=== PATIENT | male | born 1945 | race Caucasian/White ===

== ENCOUNTER 2021-03-05 18:19 | Inpatient (IN) | payer MEDICARE, OTHER, SELFPAY ==
[2021-03-05 18:34] VITALS: BP 147/99; PULSE 96; RESP 16; TEMP 36.9; O2SAT 94
[2021-03-05 18:40] VITALS: BP 155/106; PULSE 75; RESP 17; O2SAT 94
--- NOTE | 2021-03-05 18:42 | W.ED.CHESTPA ---
HPI - Chest Pain General: Chief Complaint: Chest Pain Stated Complaint: Chest Pain Time Seen by Provider: 03/05/21 18:31 History of Present Illness: MD complaint: chest pain Pertinent past history: coronary artery disease Onset (ago): day(s) (7) Timing of current episode: episodic Prior episodes: Yes Onset: during exertion Pain location: substernal Pain radiation: right arm and left arm Severity: moderate Quality: tightness and aching Relieving factors: nitroglycerin Exacerbating factors: exertion Associated symptoms: Reports dyspnea (mild); Deny fever(s), leg edema, nausea, palpitations or vomiting Treatment prior to arrival: nitroglycerin Review of Systems Const: Denies: fever(s) Eyes: Denies: change in vision Card: Reports: chest pain; Denies: palpitations Resp: Reports: dyspnea (mild) GI: Denies: nausea or vomiting PFSH ED PFSH: Medical History Cardiomyopathy Coronary artery disease Former smoker, stopped smoking many years ago GERD (gastroesophageal reflux disease) History of hypertension Hx of hyperlipidemia Hx of myocardial infarction Hypertension Surgical History Hx of CABG Social History Second hand smoke exposure: No Alcohol intake: never Caregiver/support person: Yes Lives independently: Yes Household members: spouse Marital status: Current occupational status: retired History of recent travel: No Current gender identity: Male Special christie needs: Yes Agree to transfusion: No Physical Exam Const: COMMON NORMALS: no acute distress, patient oriented x3 and alert GENERAL APPEARANCE: cooperative HENMT: COMMON NORMALS: normocephalic HEAD & SCALP: normocephalic Chest: COMMONS NORMALS: normal inspection of the chest Resp: COMMON NORMALS: normal respiratory effort, No use of accessory muscles and clear to auscultation bilaterally AUSCULTATION: clear to auscultation bilaterally Cardio: COMMON NORMALS: regular rate and regular rhythm RATE: regular rate RHYTHM: regular rhythm GI: COMMON NORMALS: Normal to inspection, nondistended, normoactive bowel sounds present and Soft to palpation PALPATION: Yes Soft to palpation Neuro: COMMON NORMALS: patient oriented x3 SENSORIUM/ORIENTATION: Yes alert Course Consultations: Consultation #1: Samy Time: 18:36 Vital Signs: Vital signs: Vital Signs Temperature 98.5 F 03/05/21 18:34 Pulse Rate 75 03/05/21 20:43 Respiratory Rate 17 03/05/21 20:43 Blood Pressure 155/106 03/05/21 20:43 Pulse Oximetry 94 03/05/21 20:43 MDM - Chest Pain MDM Narrative: Medical decision making narrative: 75-year-old gentleman with a history of coronary disease. He had a CABG in 1999. No real intervention since that time. He presents with episodic chest pain on and off for the last week. He was seen at his cardiology clinic locally on Monday and a stress test was scheduled. Pain was persistent today while fishing, and did not light up after nitroglycerin x3 at this point. Initially, his EKG shows a large left bundle branch block which appears new since his last EKG on record. There is ST elevation that is significant using scar posterior criteria in the inferior leads cardiology was alerted, and STEMI alert was called. The patient is being prepped for the [employer] now, and remains in stable condition. Lab Data: Labs: Lab Results 03/05/21 03/05/21 03/05/21 18:34 18:34 18:34 WBC 6.4 10^3/uL 10^3/ uL (4.0-10.0) RBC 4.83 10^6/uL 10^6 /uL (4.1-5.3) Hgb 14.6 g/dL g/dL (11.7-16.6) Hct 44.0 % % (42.0-52.0) MCV 91.1 fl fl (80-94) MCH 30.2 pg pg (28.0-34.0) MCHC 33.2 g/dL g/dL (30.0-36.0) RDW 12.5 % % (12.1-15.1) Plt Count 191 10^3/cmm 10^3 /cmm (130-400) MPV 10.6 fL H fL (7.4-10.4) Neut % (Auto) 61.7 % % Lymph % (Auto) 26.1 % % [place] % (Auto) 7.6 % % Eos % (Auto) 3.6 % % Baso % (Auto) 0.8 % % Neut # (Auto) 3.96 10^3/uL 10^3 /uL (1.8-7.7) Lymph # (Auto) 1.7 10^3/uL 10^3/ uL (0.8-4.8) [place] # (Auto) 0.5 10^3/uL 10^3/ uL (0.2-0.9) Eos # (Auto) 0.2 10^3/uL 10^3/ uL (0.0-0.8) Baso # (Auto) 0.1 10^3/uL 10^3/ uL (0.0-0.1) Nucleated RBC % (a uto) 0 % % Nucleated RBCs # 0.0 /100WBC /100W BC PT 13.90 SECONDS SEC ONDS (12.1-14.9) INR 1.04 (0.8-1.2) APTT 31.2 SECONDS SECO NDS (23.9-36.7) Sodium 142 mmol/L mmol/L (136-145) Potassium 4.1 mmol/L mmol/L (3.5-5.1) Chloride 105 mmol/L mmol/L (98-107) Carbon Dioxide 24 mmol/L mmol/L (22-29) Anion Gap 17.1 (5-19) BUN 15 mg/dL mg/dL (8-23) Creatinine 1.2 mg/dL mg/dL (0.7-1.2) GFR Calculation Not Reportable Glucose 91 mg/dL mg/dL (65-115) Calculated Osmolal ity 294 mOsm/kg mOsm/ kg (285-295) Calcium 9.3 mg/dL mg/dL (8.5-10.5) Total Bilirubin 0.4 mg/dL mg/dL (0.15-1.2) AST 22 U/L U/L (0-40) ALT 34 U/L U/L (0-41) Alkaline Phosphata se 79 IU/L IU/L (40-130) Creatine Kinase 119 U/L U/L (39-308) Troponin T Baselin e NT-Pro-B Natriuret Pep 208 pg/mL pg/mL (0-450) Total Protein 6.8 g/dL g/dL (6.6-8.7) Albumin 4.8 g/dL g/dL (3.5-5.2) Globulin 2.0 g/dL g/dL (1.3-4.6) 03/05/21 18:34 WBC RBC Hgb Hct MCV MCH MCHC RDW Plt Count MPV Neut % (Auto) Lymph % (Auto) [place] % (Auto) Eos % (Auto) Baso % (Auto) Neut # (Auto) Lymph # (Auto) [place] # (Auto) Eos # (Auto) Baso # (Auto) Nucleated RBC % (a uto) Nucleated RBCs # PT INR APTT Sodium Potassium Chloride Carbon Dioxide Anion Gap BUN Creatinine GFR Calculation Glucose Calculated Osmolal ity Calcium Total Bilirubin AST ALT Alkaline Phosphata se Creatine Kinase Troponin T Baselin e 40 ng/L H ng/L (0-15) NT-Pro-B Natriuret Pep Total Protein Albumin Globulin Discharge Plan Discharge Patient Disposition: Admitted As Inpatient Admit Provider: Shin Pablo Clinical Impression: ST elevation myocardial infarction (STEMI) Qualifiers: Involved coronary artery: right coronary artery Qualified Code(s): I21.11 - ST elevation (STEMI) myocardial infarction involving right coronary artery Condition: Serious Coding Level of Care Code ED Wallpaperer Helper for [facility] Fwd Exam Detailed
[2021-03-05 18:43] VITALS: PULSE 58
--- NOTE | 2021-03-05 18:43 | XRR_ITS ---
PROCEDURE INFORMATION: Exam: XR Chest Exam date and time: 03/05/2021 6:43 PM Age: 75 years old Clinical indication: Radiating and sternal or substernal pain; Prior surgery; Surgery date: 6+ months; Surgery type: Cabg 1999; Patient HX: Episodic chest pain x last few weeks. Persistent today. ; Additional info: Cp TECHNIQUE: Imaging protocol: XR of the chest. Views: 1 view. COMPARISON: [facility] Chest 2 views 11/02/2016 9:05 AM FINDINGS: Lungs: Unremarkable. No consolidation. Pleural spaces: Unremarkable. No pleural effusion. No pneumothorax. Heart/Mediastinum: The heart is not enlarged. There is a hiatal hernia which is unchanged. The patient has undergone coronary bypass surgery. Bones/joints: Unremarkable. XR/XR chest 1V portable [id number] IMPRESSION: 1. Stable hiatal hernia. 2. No acute cardiopulmonary abnormality. Radiation Dose CTDIVOL = (mGy): DLP = (mGy-cm)
--- NOTE | 2021-03-05 18:43 | ECG_ITS ---
[facility] Test Date: 2021-03-05 Pat Name: Sukhwinder Berg Department: Room: [facility]08 Gender: Male Supervisor Inventory Merchandising: : 1945 Requested By: Greg Gorman Order Number: [id number] Amanuel MD: Shin Pablo M.D. Measurements Intervals [place] Rate: 67 P: 25 UT: 151 QRS: -44 QRSD: 168 T: -16 QT: 411 QTc: 436 Interpretive Statements SINUS RHYTHM WITH SINUS ARRHYTHMIA POSSIBLE LEFT ATRIAL ENLARGEMENT [-0.1mV P-WAVE IN V1/V2] LEFT AXIS DEVIATION [QRS AXIS < -30] RIGHT BUNDLE BRANCH BLOCK [120+ ms QRS DURATION, UPRIGHT V1, 40+ ms S IN I/aVL/V4/V5/V6] Inferior leads ST elevation UT, probably recent. Acute UT ST DEPRESSION, CONSIDER SUBENDOCARDIAL INJURY [0.1+ mV ST DEPRESSION] Compared to ECG 02/14/2016 10:01:32 Left-axis deviation now present Sinus bradycardia no longer present Left anterior fascicular block no longer present Left ventricular hypertrophy no longer present Electronically Signed On 03-07-2021 13:19:57 LITHOGRAPH DESIGNER by Shin Pablo M.D. [email or web address] Therapeuticss[facility].Nutonian/store/NU/[id number] f
[2021-03-05] MEDS: ondansetron 2 mg/ML SDV 2 mL 4 MG IVP (18:49)
[2021-03-05] MEDS: ticagrelor 90 mg Tablet 180 MG PO (18:49)
[2021-03-05] MEDS: sodium chloride 0.9% 500 ML 999 ML IV (18:50)
[2021-03-05] MEDS: heparin 5,000 unit/mL INJ 1 mL 4000 UNIT IVP (18:51)
[2021-03-05] MEDS: aspirin 325 mg Tablet PO (18:51)
[2021-03-05 18:53] LABS: Basophils # 0.1 10^3/uL (0.0-0.1); Basophils % 0.8 %; Eosinophils # 0.2 10^3/uL (0.0-0.8); Eosinophils % 3.6 %; Hemoglobin 14.6 g/dL (11.7-16.6); Lymphocytes # 1.7 10^3/uL (0.8-4.8); Lymphocytes % 26.1 %; Mean Corpuscular HGB Conc 33.2 g/dL (30.0-36.0); Mean Corpuscular Hemoglobin 30.2 pg (28.0-34.0); Mean Corpuscular Volume 91.1 fl (80-94); Mean Platelet Volume 10.6 fL (7.4-10.4); Monocytes # 0.5 10^3/uL (0.2-0.9); Monocytes % 7.6 %; Neutrophils # 3.96 10^3/uL (1.8-7.7); Neutrophils % 61.7 %; Nucleated Red Blood Cells % 0 %; Platelet Count 191 10^3/cmm (130-400); Red Blood Count 4.83 10^6/uL (4.1-5.3); Red Cell Distribution Width 12.5 % (12.1-15.1); White Blood Count 6.4 10^3/uL (4.0-10.0)
[2021-03-05 19:02] LABS: INR 1.04 (0.8-1.2)
[2021-03-05 19:07] LABS: Partial Thromboplastin Time 31.2 SECONDS (23.9-36.7)
--- NOTE | 2021-03-05 19:07 | XACV_ITS ---
Wt: 92 kg Gender: Male : 1945 Any Known Allergies: No known allergies Exam Priority: Routine Procedure(s): Procedure Description: Diagnostic procedure Procedure Description: PCI procedure Procedure Description: Venous Graft Catheterization Procedure Description: KABA Graft Catheterization Procedure Description: Drug Eluting Coronary Stent Procedure Description: PTCA Procedure Description: Miscellaneous Procedure Description: ACT Procedure Description: Coronary Angiography Diagnostic Cath Status: Emergency Diagnostic Findings * Left main artery has * mild to moderate luminal irregularities LAD is proximally occluded. There is a medium to large sized diagonal artery which is patent Left circumflex artery has diffuse disease RCA not injected, known occluded KABA to LAD: Patent. Could not be selectively engaged because of subclavian tortuosity SVG to PDA: Has severe subtotal thrombotic occlusion right for touchdown with PDA.. * INDICATION: Patient presented with chest pain symptoms and EKG showed inferior wall ST elevation [place]. * Coronary angiography shows right dominance. PCI Status: Emergency PCI Indication: STEMI - Immediate PCI for STEMI Interventional Findings * Procedure detail: We obtained access in right common femoral artery. Initially attempted to engage the SVG to PDA with JR4 guide catheter. However because of iliac tortuosity and inappropriate shape for engagement for this particular graft, catheter was removed. IV heparin was administered. Short 6 Yi sheath was switched to a long sheath. We used multipurpose guide catheter to engage SVG to PDA. 0.014 run-through wire was used to cross the thrombotic lesion in distal SVG and was put into PDA. Initially balloon angioplasty with a 3.0 x 15 mm semicompliant balloon was performed. This was followed by placement of 3.0 x 15 mm resolute Ever drug-eluting stent. Patient became chest pain-free at this time. His sheath was sutured in place for removal later. He left the Hat Brim And Crown Laminating Operator in stable condition. Conclusions 1. Left main artery has 2. mild to moderate luminal irregularities LAD is proximally occluded. There is a medium to large sized diagonal artery which is patent Left circumflex artery has diffuse disease RCA not injected, known occluded KABA to LAD: Patent. Could not be selectively engaged because of subclavian tortuosity SVG to PDA: Has severe subtotal thrombotic occlusion right for touchdown with PDA.. 3. Subtotal thrombotic occlusion of distal SVG to PDA right for touchdown. Status post successful revascularization with KARINA x1. Recommendations * Transfer to ICU. * Dual antiplatelet therapy for at least 1 year. * High intensity statin therapy. * Order echocardiogram. * Outpatient cardiology follow up in 4 weeks. Interventional RX Recommendation: PCI w/o planned CABG Diagnostic RX Recommendation: PCI w/o planned CABG Anticoagulation: Heparin Pressures Phase:Rest AO : 105 / 72 ( 87 ) @ 2:19:18 PM 104 / 68 ( 84 ) @ 5:44:00 PM 91 / 50 ( 69 ) @ 5:53:00 PM 81 / 48 ( 61 ) @ 5:54:00 PM Clinical Evaluation EBL: 5mL-10mL Procedural Details Admit Source: Emergency department. Pre-Procedure Time Out. Identified patient by full name and date of as verbalized by the patient/guarantor. Does the consent match the physician's order: Yes. Accurate & Complete Informed Consent: Yes. Inpatient/Outpatient History & Physical on Chart: Yes. If H&P is completed, is and addenduem needed: N/A; If yes, is the addendum complete: N/A. Visualize and Verify Site with Patient/Guarantor: N/A. Relevant Radiology Images available: N/A. Pre-op teaching completed and patient verbalized understanding. The risks, benefits, and alternatives of sedation and/or procedure were discussed by physician. The patient agrees to continue. Procedure started. [facility] Clinical Fraility Score: 4: Vulnerable. Hat Brim And Crown Laminating Operator Indications: ACS <= 24 hours. Chest Pain Symptom Assessment: Atypical Angina. Correct patient, site and procedure confirmed by cath team. Current diagnosis: STEMI. PERRLA. Strong, equal hand house repairer bilaterally. Lungs clear x 5 lobes. IV Site on Arrival: 20 gauge in the right anticubital. IV Fluids: 0.9% NaCl at KVO. 0 mL infused prior to manager labor delivery. Oxygen started at 2liters/min via nasal canula. Baseline sample Acquired. HR: 78 BPM. Physician arrived. Physician scrubbed in. Immediate Pre-Procedure Time Out. Correct Patient: Yes; Correct Procedure: Yes; Correct Site: Yes; Correct Patient Position: Yes; Correct Supplies: Yes; Dried Flammable Prep: Yes; Blood Products Available: N/A;. Lidocaine 1% infiltrated to the right groin. Pre Procedural Pulses: bilateral dorsalis pedis was 2+. Arterial access obtained with micropuncture set. PCI Indication: STEMI. 6 solomon islander JR 4 guide catheter was inserted over the wire. Glidewire inserted. Glidewire out. Delay in PCI due to difficult anatomy. Guide catheter out. Exchange wire inserted. 6Fr short sheath exchanged for 6 Fr 23 cm Sheath. 6 solomon islander JR 4 guide catheter was inserted over the wire. Guide catheter out. 6 solomon islander MPA 1 guide catheter was inserted over the wire. SVG's to RCA visualized and patent. Runthrough guidewire was advanced through the guide catheter to lesion in the distal SVG. Inflation number : 1 A AB TREK 3.00X15 RX BALLOON was prepped and advanced across the Distal PDA on the SVG , then inflated to 8 LORI for 0:22 seconds. Inflation number: 1 The AB TREK 3.00X15 RX BALLOON was reinflated across the Aorta Right -> R PDA, to 8 LORI for 0:10 seconds. Balloon out. Balloon inserted to lesion in the SVG to PDA. Stent inserted to lesion in the SVG to PDA. Inflation Number : 2 A MDT R EVER 3.0X15 KARINA -Lot Number# [id number] Exp 12/15/2023 was prepped and advanced across the Aorta Right -> R PDA. The stent was deployed at 14 LORI for 0:25 seconds. Stent balloon out over wire. Wire out. Results checked. Guide catheter out. A 5 solomon islander JL4 catheter in over wire. Multiple views taken of left coronary artery. Catheter out. A 5 solomon islander IM catheter in over wire. exchange wire out. Glidewire inserted. Glidewire out. KABA to LAD visualized. Catheter out. 6Fr 23 cm sheath exchanged for short 6Fr sheath. ACT drawn. Results 174 seconds. Therapeutic limits - pre-heparin administration 90-150 seconds and monitoring heparin during a vascular procedure >250 seconds. A Suture was successful obtaining hemostatsis at the Right Femoral artery insertion site. Post Procedure: Pulses reassessed and unchanged. PERRLA. Strong, equal hand house repairer bilaterally. No VTE prophylaxis required. Medication's Wasted: Lidocaine 1% = 2 mL. Medication's Wasted: Other = Cardene 24.8 mg. Medication's Wasted: Heparin = 2000 u. Total IV fluids: 287 mL. Post-op diagnosis: STEMI. Complications: none. Estimated blood loss: 5mL-10mL. Responsiveness - Normal response to verbal stimuli; alert and oriented, PERRLA. Airway - Unaffected, no intervention required; spontaneous ventilation. Circulation: W/N/L, pulses unchanged. Nausea/Vomiting: No. Procedure completed. Patient transferred by bed to ICU. Vital chart was stopped. Access Site Site: Right Femoral artery Sheath Size: 6 Fr Hemostasis Method: Suture Hemostasis Success: Successful Procedure Medications Start: 7:27 PM Stop: 7:27 PM Medication: Versed Amount: 1 mg Route: I.V. Start: 7:27 PM Stop: 7:27 PM Medication: Fentanyl Amount: 50 mcg Route: I.V. Start: 7:28 PM Stop: 7:28 PM Medication: Versed Amount: 1 mg Route: I.V. Start: 7:53 PM Stop: 7:53 PM Medication: Versed Amount: 1 mg Route: I.V. Start: 7:53 PM Stop: 7:53 PM Medication: Fentanyl Amount: 25 mcg Route: I.V. Start: 7:53 PM Stop: 7:53 PM Medication: 0.9% Saline Amount: 250 ml Route: I.V. bolus Start: 7:55 PM Stop: 7:55 PM Medication: Cardene Amount: 200 mcg Route: I.C. Start: 8:02 PM Stop: 8:02 PM Medication: Aggrastat 12.5 mg/250 mL Amount: ml Route: I.V. bolus Start: 8:03 PM Stop: 8:03 PM Medication: Aggrastat 12.5 mg/250 mL Amount: 16.6 ml/hr Route: I.V. drip Start: 8:14 PM Stop: 8:14 PM Medication: Heparin Amount: 2000 units Route: I.V. I, the attending physician, have reviewed and verified all procedure medications. Yes, all medications given per verbal order History/Risk Factors Hypertension: No Dyslipidemia: No Peripheral Arterial Disease (PAD): No Myocardial Infarction ([place]): No Obesity: No Renal Disease: No Prior Interventions PCI: No CABG: No Valve Surgery: No Report Signatures Finalized by Shin Pablo MD on 03/23/2021 07:12 AM
[2021-03-05 19:13] LABS: Troponin(5th) Baseline 40 ng/L (0-15)
[2021-03-05 19:20] LABS: Alanine Aminotransferase 34 U/L (0-41); Albumin Level 4.8 g/dL (3.5-5.2); Alkaline Phosphatase 79 IU/L (40-130); Anion Gap 17.1 (5-19); Aspartate Amino Transferase 22 U/L (0-40); Blood Urea Nitrogen 15 mg/dL (8-23); Calcium 9.3 mg/dL (8.5-10.5); Carbon Dioxide 24 mmol/L (22-29); Chloride 105 mmol/L (98-107); Creatine Phosphokinase 119 U/L (39-308); Glucose 91 mg/dL (65-115); NT Pro B Type Natriuretic Pept 208 pg/mL (0-450); Osmolality Calculated 294 mOsm/kg (285-295); Potassium 4.1 mmol/L (3.5-5.1); Sodium 142 mmol/L (136-145); Total Bilirubin 0.4 mg/dL (0.15-1.2); Total Protein 6.8 g/dL (6.6-8.7)
--- NOTE | 2021-03-05 19:20 | P.HP_ITS ---
Providers/Chief Complaint Admitting Physician: Shin Pablo MD Primary Care Provider: Krzysztof Romero MD Chief Complaint: Chest Pain History of Present Illness Sukhwinder Berg is a 75 year old male with past medical history of hypertension coronary artery disease status post CABG performed in 2008. Coronary angiogram from 2012 that showed patent KABA to LAD and SVG to PDA and known occluded SVG to OM. His [place] OM was a small sized vessel. He has presented with 2 to 3 hours of significant chest pain. He says he was walking when had to stop multiple times because of chest pain. It was radiating to both arms. He has been having on and off chest pain for the last few weeks and was seen in cardiology clinic recently with a plan for stress test. EKG shows right bundle branch block and inferior ST elevations. He was emergently taken to the cardiac Lacquer Pin Press Operator and coronary angiogram was performed that showed thrombotic occlusion of distal SVG to PDA that underwent successful revascularization with balloon angioplasty and placement of KARINA x1. ST elevations and his symptoms resolved. Review of Systems Narrative: CONSTITUTIONAL: No fever chills weight loss or gain or night sweats. [] HEENT: Normocephalic, atraumatic.[] RESPIRATORY: No cough, sputum, hemoptysis or wheezing.[] CARDIOVASCULAR: Has chest pain, no PND, orthopnea, lower extremity edema, presyncope or syncope. [] GI: no nausea vomiting diarrhea. [] LEAD INSPECTOR: No numbness, tingling, weakness or loss of function in any part of the body. [] MUSCULOSKELETAL: No knee or joint pain or rashes. [] Medications/Allergies Home Medications Medication Instructions Recorded Confirmed Last Taken Type magnesium oxide 400 mg PO DAILY 11/07/19 03/06/21 Unknown History pantoprazole 40 mg tablet,delayed 40 mg PO BID tab 11/07/19 03/06/21 Unknown History release aspirin 81 mg tablet,delayed 81 mg PO DAILY #90 tab 11/08/19 03/06/21 Unknown Rx release nitroglycerin 0.4 mg sublingual 0.4 mg SUBLINGUAL Q5M PRN #100 tab 11/08/19 03/06/21 Unknown Rx tablet omega-3 fatty acids 1,000 mg 1,000 mg PO DAILY #90 cap 11/08/19 03/06/21 Unknown Rx capsule ondansetron HCl 4 mg tablet 4 mg PO Q6H PRN #20 tab 04/17/20 03/06/21 Unknown Rx clopidogrel 75 mg tablet 75 mg PO DAILY #90 tab 02/22/21 03/06/21 Unknown Rx isosorbide mononitrate 60 mg 60 mg PO DAILY #90 tab 02/22/21 03/06/21 Unknown Rx tablet,extended release 24 hr lisinopril 10 mg tablet 10 mg PO DAILY #90 tab 02/22/21 03/06/21 Unknown Rx metoprolol tartrate 25 mg tablet 12.5 mg PO BID #90 tab 02/22/21 03/06/21 Unknown Rx simvastatin 40 mg tablet 40 mg PO DAILY #90 tab 02/22/21 03/06/21 Unknown Rx Allergies Allergy/AdvReac Type Severity Reaction Status Date / Time No Known Allergies Allergy Verified 03/03/21 09:10 PFSH Acute PFSH: Medical History Cardiomyopathy Coronary artery disease Former smoker, stopped smoking many years ago GERD (gastroesophageal reflux disease) History of hypertension Hx of hyperlipidemia Hx of myocardial infarction Hypertension Surgical History Hx of CABG Social History Second hand smoke exposure: No Alcohol intake: never Caregiver/support person: Yes Lives independently: Yes Household members: spouse Marital status: Current occupational status: retired History of recent travel: No Current gender identity: Male Special christie needs: Yes Agree to transfusion: No Vitals/I&O/Wt Last Vital Signs Temp 98.5 F 03/05/21 18:34 Pulse 75 03/05/21 18:40 Resp 17 03/05/21 18:40 BP 155/106 03/05/21 18:40 Pulse Ox 94 03/05/21 18:40 Weight last 48 hrs Weight 189 lb Physical Exam Narrative: EXAM NARRATIVE: GENERAL: Patient is alert, awake and oriented x3. [] NECK: No jugular vein distension. [] HEENT: No cyanosis. No icterus. No pallor. [] HEART: Regular S1 and S2. No murmur, rub or gallop. [] LUNGS: Clear to auscultate bilaterally. [] ABDOMEN: Soft, nontender and nondistended. Positive bowel sounds. No guarding, rebound or tenderness. [] CENTRAL NERVOUS SYSTEM: Grossly nonfocal. [] EXTREMITIES: Lower extremities with 1+ edema bilaterally. Pulses palpable in the lower extremities, both dorsalis pedis and posterior tibial. [] Data : 03/06/21 04:04 03/06/21 04:04 A&P Assessment and plan (1) ST elevation myocardial infarction (STEMI): Status: Acute Qualifiers: Involved coronary artery: right coronary artery Qualified Code(s): I21.11 - ST elevation (STEMI) myocardial infarction involving right coronary artery (2) Hypertension: Status: Acute Qualifiers: Hypertension type: primary hypertension Qualified Code(s): I10 - Essential (primary) hypertension (3) Coronary artery disease: Status: Acute Qualifiers: Coronary Disease-Associated Artery/Lesion type: [place] artery [place] vs. transplanted heart: [place] heart Associated angina: without angina Qualified Code(s): I25.10 - Atherosclerotic heart disease of [place] coronary artery without angina pectoris (4) Hx of hyperlipidemia: Status: Acute (5) Hx of CABG: Status: Acute Patient had presented with acute inferior ST elevation [place]. He underwent successful revascularization of SVG to PDA with KARINA x1. Continue aspirin and Brilinta for at least 1 year. High intensity statin therapy. Metoprolol and lisinopril. Transfer to ICU. Order echocardiogram. Attestations Medical Necessity Statement*: Care expected to cross 2 midnights. Patient had presented with acute inferior wall ST elevation ND and underwent successful revascularization with balloon angioplasty and stent placement with KARINA x1. Coding Level of Care Code Acute Tank Storage Supervisor for [facility] Diagnoses ST elevation myocardial infarction (STEMI) I21.11 Involved coronary artery: right coronary artery Hypertension I10 Hypertension type: primary hypertension Coronary artery disease I25.10 Coronary Disease-Associated Artery/Lesion type: [place] artery [place] vs. transplanted heart: [place] heart Associated angina: without angina Hx of hyperlipidemia Z86.39 Hx of CABG Z95.1
[2021-03-05 20:43] VITALS: BP 155/106; PULSE 75; RESP 17; O2SAT 94
--- NOTE | 2021-03-05 20:43 | ECG_ITS ---
[facility] Test Date: 2021-03-05 Pat Name: Sukhwinder Berg Department: Room: [facility] Gender: Male Art Therapy Specialist: : 1945 Requested By: Greg Gorman Order Number: [id number] Amanuel MD: Shin Pablo M.D. Measurements Intervals [place] Rate: 72 P: 40 [place]: 154 QRS: -55 QRSD: 166 T: -21 QT: 438 QTc: 480 Interpretive Statements SINUS RHYTHM RIGHT BUNDLE BRANCH BLOCK [120+ ms QRS DURATION, UPRIGHT V1, 40+ ms S IN I/aVL/V4/V5/V6] LEFT ANTERIOR FASCICULAR BLOCK [QRS AXIS <= -45, QR IN I, RS IN II] Compared to ECG 02/14/2016 10:01:32 Sinus bradycardia no longer present Left ventricular hypertrophy no longer present ST (T wave) deviation no longer present Electronically Signed On 03-08-2021 17:31:08 INSURANCE POLICY ISSUE CLERK by Shin Pablo M.D. [id number]
[2021-03-05 21:45] LABS: Troponin 5 2HR 240.1 ng/L (0-15); Troponin 5 2HR Delta 200.1 ABS# (0-10)
[2021-03-05 22:00] VITALS: PULSE 59
[2021-03-05 22:10] VITALS: BP 109/77; PULSE 59; RESP 14; TEMP 36.9; O2SAT 94
[2021-03-05 23:16] LABS: Partial Thromboplastin Time 161.9 SECONDS (23.9-36.7)
--- NOTE | 2021-03-05 23:21 | PC.NURSE ---
PTT drawn to assess for sheath removal. Critical level of 161.9. Repeat ptt in 2 hrs.
[2021-03-06] VITALS (41 sets, daily range): BP systolic 96–130; BP diastolic 67–93; PULSE 52–68; RESP 0–22; O2SAT 91–97
[2021-03-06] MEDS: atorvastatin 40 mg Tablet PO ×2 (00:37→20:17)
[2021-03-06] MEDS: metoprolol tartrate 25 mg Tablet PO ×3 (00:37→17:48)
--- NOTE | 2021-03-06 00:43 | ECG_ITS ---
[facility] Test Date: 2021-03-06 Pat Name: Sukhwinder Berg Department: [facility] Gender: Male Mental Health Counselor: : 1945 Requested By: Greg Gorman Order Number: [id number] Amanuel MD: Shin Pablo M.D. Measurements Intervals [place] Rate: 57 P: 31 LA: 161 QRS: -52 QRSD: 172 T: -18 QT: 445 QTc: 434 Interpretive Statements SINUS BRADYCARDIA RIGHT BUNDLE BRANCH BLOCK [120+ ms QRS DURATION, UPRIGHT V1, 40+ ms S IN I/aVL/V4/V5/V6] LEFT ANTERIOR FASCICULAR BLOCK [QRS AXIS <= -45, QR IN I, RS IN II] Compared to ECG 03/05/2021 20:46:20 Sinus rhythm no longer present Electronically Signed On 03-08-2021 17:30:52 FENCE ERECTOR SUPERVISOR by Shin Pablo M.D. [id number]
[2021-03-06 01:17] LABS: Troponin 5 6HR 1031 ng/L (0-15); Troponin 5 6HR Delta 991 ng/L (0-12)
[2021-03-06 05:33] LABS: Basophils % 0.5 %; Eosinophils # 0.2 10^3/uL (0.0-0.8); Eosinophils % 3.3 %; Hematocrit 43.1 % (42.0-52.0); Hemoglobin 13.6 g/dL (11.7-16.6); Lymphocytes # 1.3 10^3/uL (0.8-4.8); Mean Corpuscular HGB Conc 31.6 g/dL (30.0-36.0); Mean Corpuscular Hemoglobin 29.2 pg (28.0-34.0); Mean Corpuscular Volume 92.7 fl (80-94); Mean Platelet Volume 10.9 fL (7.4-10.4); Monocytes # 0.4 10^3/uL (0.2-0.9); Monocytes % 7.5 %; Neutrophils # 3.73 10^3/uL (1.8-7.7); Neutrophils % 65.5 %; Nucleated Red Blood Cells % 0 %; Platelet Count 162 10^3/cmm (130-400); Red Blood Count 4.65 10^6/uL (4.1-5.3); Red Cell Distribution Width 12.6 % (12.1-15.1); White Blood Count 5.7 10^3/uL (4.0-10.0)
[2021-03-06 06:08] LABS: Anion Gap 13.8 (5-19); Blood Urea Nitrogen 14 mg/dL (8-23); Calcium 8.7 mg/dL (8.5-10.5); Carbon Dioxide 25 mmol/L (22-29); Chloride 102 mmol/L (98-107); Glucose 81 mg/dL (65-115); Osmolality Calculated 284 mOsm/kg (285-295); Potassium 3.8 mmol/L (3.5-5.1); Sodium 137 mmol/L (136-145)
--- NOTE | 2021-03-06 06:19 | PC.NURSE ---
Pt starting having chest pain and bilateral arm pain approximately 1700 on 03/05/2021. Pt's , Dejah, brought him to the ER after two rounds of NTG at home with no relief. STEMI was discovered on EKG, and pt was immediately taken back to stores laborer for procedural correction. Pt came to ICU after stores laborer procedure. Pt was A&Ox4, calm and is a good historian for the pt assessment. Pt was admitted to the ICU for monitoring. Right groin site was soft, with no signs of bruising or shadowing on the gauze. Aggrastat IVF was turned off at 0000 hrs on 03/06/2021 per Provider's orders. First PTT was critically high at 161, delaying removal of femoral sheath. Repeat PTT was 59, delaying femoral sheath further. Repeat PTT was collected with the collective unit's morning labs which has further slowed down the intention of removing the femoral sheath this shift. Pt continues flat bedrest until a minimum of 6 hrs after sheath has been removed. Puncture sute remains intact with no abnormalities or immediate concerns. Pt had three 5-beat runs of reperfusion vtach through the night. Home meds and heart healthy diet restarted.
[2021-03-06 06:45] LABS: Partial Thromboplastin Time 31.1 SECONDS (23.9-36.7)
[2021-03-06] MEDS: fentaNYL 50 mcg/mL INJ 2mL IVP (07:46)
--- NOTE | 2021-03-06 08:23 | PC.NURSE ---
Pulled sheath Pre medicated with fentanyl - see eMAR. Sheath pulled at 0755. Held pressure for 15 minutes. Patient tolerated well. Site is soft. Will continue to monitor.
[2021-03-06] MEDS: aspirin 81 mg EC Tablet PO (09:04)
[2021-03-06] MEDS: lisinopril 10 mg Tablet PO (09:04)
[2021-03-06] MEDS: ticagrelor 90 mg Tablet PO ×2 (09:05→17:48)
--- NOTE | 2021-03-06 11:07 | USCV_ITS ---
Morena Sukhwinder Age: 75 Gender: M : 1945 Exam Date: 03/06/2021 14:14 Ordering Phys: Shin Pablo M.D ([email or web address]) Technologist: Micheline Delgado Exam Location: [facility] [place] Indication: STEMI BP: 117 / 77 HR: 60 Rhythm: Sinus Technical Quality: Fair MEASUREMENTS (Male / Female) Normal Values 2D ECHO LV Diastolic Diameter PLAX 4.5 cm 4.2 - 5.9 / 3.9 - 5.3 cm LV Systolic Diameter PLAX 3.3 cm LV Chamber Size 3.8 cm IVS Diastolic Thickness 1.5 cm 0.6 - 1.0 / 0.6 - 0.9 cm IVS Systolic Thickness 2.0 cm LVPW Diastolic Thickness 1.4 cm 0.6 - 1.0 / 0.6 - 0.9 cm LVPW Systolic Thickness 1.6 cm RV Chamber Size 3.1 cm LVOT Diameter 2.2 cm LV Ejection Fraction 2D Teich 53.1 % LV Ejection Fraction MOD 2C 56.6 % LV Ejection Fraction 2C AL 61.7 % LA Diameter 4.1 cm LA Width 4.5 cm LA Height 6.2 cm RA Width 3.1 cm RA Height 5.5 cm Aorta at Sinotubular Diameter 2.6 cm M-MODE LV Diastolic Diameter MM 5.3 cm 4.2 - 5.9 / 3.9 - 5.3 cm LV Systolic Diameter MM 3.7 cm LV Ejection Fraction MM Teich 58.1 % IVS Diastolic Thickness MM 1.5 cm 0.6 - 1.0 / 0.6 - 0.9 cm IVS Systolic Thickness MM 2.0 cm LVPW Diastolic Thickness MM 1.2 cm 0.6 - 1.0 / 0.6 - 0.9 cm LVPW Systolic Thickness MM 1.6 cm RV Diastolic Diameter MM 2.5 cm Aortic Annulus Diameter 4.0 cm LA Ao Ratio MM 1.2 MV E Point Septal Separation 0.7 cm DOPPLER AV Peak Velocity 131.0 cm/s LVOT Peak Velocity 101.0 cm/s AV Area Cont Eq vti 2.7 cm squared AV Area Cont Eq pk 2.9 cm squared MV Area PHT 3.3 cm squared Mitral E to A Ratio 1.3 MV E' Velocity 38.5 cm/s Mitral E to MV E' Ratio 7.9 Mitral E to LV E' Lateral Ratio 5.8 Mitral E to LV E' Septal Ratio 12.8 TR Peak Velocity 269.0 cm/s TR Peak Gradient 28.9 mmHg TR Mean Velocity 221.1 cm/s TR Mean Gradient 20.9 mmHg TR Velocity Time Integral 94.9 cm TV Peak E Velocity 54.0 cm/s Right Atrial Pressure 3.0 mmHg Pulmonary Artery Systolic Pressu 31.9 mmHg RV Acceleration Time 0.1 s RV Ejection Time 0.3 s RV AcT/ET 0.3 FINDINGS Left Ventricle Normal left ventricular size. LV systolic function is normal with EF of 55-60%. No regional wall motion abnormalities. Diastolic function is abnormal Right Ventricle The right ventricle is normal in size and function. Right Atrium The right atrium is normal in size. Left Atrium The left atrium is dilated Mitral Valve Structurally normal mitral valve without significant stenosis or prolapse. There is mild mitral regurgitation. Aortic Valve Structurally normal aortic valve without significant sclerosis or stenosis. There is trace aortic regurgitation. Tricuspid Valve Structurally normal tricuspid valve without significant stenosis. Mild tricuspid regurgitation. Mild pulmonary hypertension with RVSP of 30 to 35 mmHg Pulmonic Valve Structurally normal pulmonic valve without significant stenosis. There is mild pulmonic regurgitation. Pericardium Normal pericardium without effusion. Aorta Mildly dilated aortic root CONCLUSIONS LV systolic function is normal with EF 55 to 60%. Diastolic function is abnormal. Left atrium is mildly dilated. Mild mitral regurgitation. Trace aortic regurgitation. Mild tricuspid regurgitation. Mild pulmonary hypertension. Mild pulmonic regurgitation. Compared to prior echocardiogram from 12/18/2012, no significant changes are noted. Shin Pablo MD (Electronically Signed) Final Date: 06 March 2021 16:23 S
--- NOTE | 2021-03-06 16:33 | P.PN_ITS ---
Subjective Subjective: Interval history: Patient is overall doing well. Denies any complaints of chest pain or shortness of breath. ST elevations have resolved. Vitals/I&O/Wt Last Vital Signs Temp 98.5 F 03/05/21 22:10 Pulse 67 03/06/21 14:00 Resp 16 03/06/21 12:30 BP 117/77 03/06/21 12:30 Pulse Ox 94 03/06/21 12:30 03/06/21 03/06/21 03/06/21 06:59 14:59 22:59 Intake Total 480 / 480 600 / 600 Output Total 600 / 600 Balance -120 / -120 600 / 600 Weight last 48 hrs Weight 189 lb Physical Exam Narrative: EXAM NARRATIVE: GENERAL: Patient is alert, awake and oriented x3. [] NECK: No jugular vein distension. [] HEENT: No cyanosis. No icterus. No pallor. [] HEART: Regular S1 and S2. No murmur, rub or gallop. [] LUNGS: Clear to auscultate bilaterally. [] ABDOMEN: Soft, nontender and nondistended. Positive bowel sounds. No guarding, rebound or tenderness. [] CENTRAL NERVOUS SYSTEM: Grossly nonfocal. [] EXTREMITIES: Lower extremities with 1+ edema bilaterally. Pulses palpable in the lower extremities, both dorsalis pedis and posterior tibial. [] Data : 03/06/21 04:04 03/06/21 04:04 A&P Assessment and plan (1) ST elevation myocardial infarction (STEMI): Status: Acute Qualifiers: Involved coronary artery: right coronary artery Qualified Code(s): I21.11 - ST elevation (STEMI) myocardial infarction involving right coronary artery (2) Hypertension: Status: Acute Qualifiers: Hypertension type: primary hypertension Qualified Code(s): I10 - Essential (primary) hypertension (3) Coronary artery disease: Status: Acute Qualifiers: Coronary Disease-Associated Artery/Lesion type: [place] artery [place] vs. transplanted heart: [place] heart Associated angina: without angina Qualified Code(s): I25.10 - Atherosclerotic heart disease of [place] coronary artery without angina pectoris (4) Hx of hyperlipidemia: Status: Acute (5) Hx of CABG: Status: Acute Patient had presented with acute inferior ST elevation [place]. He underwent successful revascularization of SVG to PDA with KARINA x1. Continue aspirin and Brilinta for at least 1 year. High intensity statin therapy. Metoprolol and lisinopril. Transfer out of [facility] Echocardiogram shows preserved LV systolic function. Attestations Medical Necessity Statement*: Care expected to cross 2 midnights. Patient had presented with acute ST elevation [place] and underwent successful revascularization with KARINA x1. Coding Level of Care Code Acute Talent Acquisition Manager for Jemmacheco Marquez Diagnoses ST elevation myocardial infarction (STEMI) I21.11 Involved coronary artery: right coronary artery Hypertension I10 Hypertension type: primary hypertension Coronary artery disease I25.10 Coronary Disease-Associated Artery/Lesion type: [place] artery [place] vs. transplanted heart: [place] heart Associated angina: without angina Hx of hyperlipidemia Z86.39 Hx of CABG Z95.1
[2021-03-07] VITALS (22 sets, daily range): BP systolic 119–153; BP diastolic 65–94; PULSE 50–79; RESP 1–23; TEMP 36.8–37; O2SAT 91–96
[2021-03-07 04:25] LABS: Basophils % 0.6 %; Eosinophils # 0.4 10^3/uL (0.0-0.8); Hematocrit 43.8 % (42.0-52.0); Hemoglobin 14.3 g/dL (11.7-16.6); Lymphocytes # 1.4 10^3/uL (0.8-4.8); Lymphocytes % 20.1 %; Mean Corpuscular HGB Conc 32.6 g/dL (30.0-36.0); Mean Corpuscular Hemoglobin 30.3 pg (28.0-34.0); Mean Corpuscular Volume 92.8 fl (80-94); Mean Platelet Volume 10.7 fL (7.4-10.4); Monocytes # 0.6 10^3/uL (0.2-0.9); Monocytes % 8.5 %; Neutrophils % 65.5 %; Nucleated Red Blood Cells % 0 %; Platelet Count 153 10^3/cmm (130-400); Red Blood Count 4.72 10^6/uL (4.1-5.3); Red Cell Distribution Width 12.3 % (12.1-15.1)
[2021-03-07 04:40] LABS: Anion Gap 13.2 (5-19); Blood Urea Nitrogen 13 mg/dL (8-23); Calcium 8.7 mg/dL (8.5-10.5); Carbon Dioxide 26 mmol/L (22-29); Chloride 102 mmol/L (98-107); Glucose 89 mg/dL (65-115); Osmolality Calculated 284 mOsm/kg (285-295); Potassium 4.2 mmol/L (3.5-5.1); Sodium 137 mmol/L (136-145)
--- NOTE | 2021-03-07 04:47 | PC.NURSE ---
Addendum entered by Sharmila Cifuentes RN 03/07/21 05:10: At 0500, Pt transported to room 259-2 per w/c per this nurse with portable monitor in place. TF MOLECULAR PHYSICIST assumed care upon arrival. Original Note: Nursing Note: Report Given to Akua Acevedo LPN on Med/Surg at this time. Pt. to go to room 259-2 .
[2021-03-07] MEDS: lisinopril 10 mg Tablet PO (08:58)
[2021-03-07] MEDS: metoprolol tartrate 25 mg Tablet PO (08:59)
[2021-03-07] MEDS: ticagrelor 90 mg Tablet PO (08:59)
[2021-03-07] MEDS: aspirin 81 mg EC Tablet PO (08:59)
--- NOTE | 2021-03-07 10:50 | P.DS_ITS ---
Discharge Providers Date of Admission: 03/05/21 20:37 Date of Discharge: March 07, 2021 Attending Provider at Admission: Shin Pablo M.D Attending Provider at Discharge: Shin Pablo M.D Primary Care Provider: Krzysztof Romero MD Diagnoses at Discharge Discharge Diagnosis (1) ST elevation myocardial infarction (STEMI): Qualifiers: Involved coronary artery: right coronary artery Qualified Code(s): I21.11 - ST elevation (STEMI) myocardial infarction involving right coronary artery (2) Hypertension: Status: Acute Qualifiers: Hypertension type: primary hypertension Qualified Code(s): I10 - Essential (primary) hypertension (3) Coronary artery disease: Status: Acute Qualifiers: Associated angina: without angina Coronary Disease-Associated Artery/Lesion type: [place] artery [place] vs. transplanted heart: [place] heart Qualified Code(s): I25.10 - Atherosclerotic heart disease of [place] coronary artery without angina pectoris (4) Hx of hyperlipidemia: Status: Acute (5) Hx of CABG: Status: Acute Reason for Visit Reason for Visit: Chest Pain Brief History: 75 year old male with past medical history of hypertension coronary artery disease status post CABG performed in 2008. Coronary angiogram from 2013 that showed patent KABA to LAD and SVG to PDA and known occluded SVG to OM. His [place] OM was a small sized vessel. He has presented with 2 to 3 hours of significant chest pain. He says he was walking when had to stop multiple times because of chest pain. It was radiating to both arms. He has been having on and off chest pain for the last few weeks and was seen in cardiology clinic recently with a plan for stress test. EKG shows right bundle branch block and inferior ST elevations. He was emergently taken to the cardiac Professor Of Theology Hospital Course Hospital Course 75 year old male with past medical history of hypertension coronary artery disease status post CABG performed in 2008. Coronary angiogram from 2012 that showed patent KABA to LAD and SVG to PDA and known occluded SVG to OM. His [place] OM was a small sized vessel. He has presented with 2 to 3 hours of significant chest pain. He says he was walking when had to stop multiple times because of chest pain. It was radiating to both arms. He has been having on and off chest pain for the last few weeks and was seen in cardiology clinic recently with a plan for stress test. EKG shows right bundle branch block and inferior ST elevations. He was emergently taken to the cardiac Professor Of Theology and coronary angiogram was performed that showed thrombotic occlusion of distal SVG to PDA that underwent successful revascularization with balloon angioplasty and placement of KARINA x1. ST elevations and his symptoms resolved. Over the next day he stayed stable. Patient's echocardiogram showed preserved LV systolic function. He was discharged in a stable condition. Physical Exam Narrative: EXAM NARRATIVE: GENERAL: Patient is alert, awake and oriented x3. [] NECK: No jugular vein distension. [] HEENT: No cyanosis. No icterus. No pallor. [] HEART: Regular S1 and S2. No murmur, rub or gallop. [] LUNGS: Clear to auscultate bilaterally. [] ABDOMEN: Soft, nontender and nondistended. Positive bowel sounds. No guarding, rebound or tenderness. [] CENTRAL NERVOUS SYSTEM: Grossly nonfocal. [] EXTREMITIES: Lower extremities with 1+ edema bilaterally. Pulses palpable in the lower extremities, both dorsalis pedis and posterior tibial. [] Discharge Data Data Completed and Pending: Completed Studies During Hospitalization Category Date Time Status XR chest 1V ashley ble [id number] Stat Exams 03/05/21 18:43 Completed CV. echo complete * [id number] Routine Ultrasound 03/06/21 11:07 Completed Pending at discharge Category Date Time Status SCULPTURE INSTRUCTOR request for service Urgent Exams 03/05/21 19:07 Taken Basic Metabolic P kings AM LABS Lab 03/08/21 04:00 Ordered Complete Blood Co unt w/Auto AM LABS Lab 03/08/21 04:00 Ordered Labs from last 24 hours 03/07/21 03/07/21 03:30 03:30 WBC 7.0 RBC 4.72 Hgb 14.3 Hct 43.8 MCV 92.8 MCH 30.3 MCHC 32.6 RDW 12.3 Plt Count 153 MPV 10.7 H Neut % (Auto) 65.5 Lymph % (Auto) 20.1 [place] % (Auto) 8.5 Eos % (Auto) 5.0 Baso % (Auto) 0.6 Neut # (Auto) 4.60 Lymph # (Auto) 1.4 [place] # (Auto) 0.6 Eos # (Auto) 0.4 Baso # (Auto) 0.0 Nucleated RBC % (a uto) 0 Nucleated RBCs # 0.0 Sodium 137 Potassium 4.2 Chloride 102 Carbon Dioxide 26 Anion Gap 13.2 BUN 13 Creatinine 0.8 GFR Calculation Not Reportable Glucose 89 Calculated Osmolal ity 284 L Calcium 8.7 Vitals: Last Vital Signs Temp 98.2 F 03/07/21 07:55 Pulse 60 03/07/21 07:55 Resp 16 03/07/21 07:55 BP 120/82 03/07/21 07:55 Pulse Ox 93 03/07/21 07:55 Discharge Plan Discharge Patient Disposition: Home Condition: Stable Prescriptions: New atorvastatin 40 mg Tablet 40 mg PO BEDTIME Qty: 90 RF: 0 Continued ondansetron HCl [Zofran] 4 mg tablet 4 mg PO Q6H PRN (Reason: nausea and vomiting) Qty: 20 RF: 0 clopidogrel [Plavix] 75 mg tablet 75 mg PO DAILY Qty: 90 RF: 3 isosorbide mononitrate 60 mg tablet extended release 24 hr 60 mg PO DAILY Qty: 90 RF: 3 lisinopril 10 mg tablet 10 mg PO DAILY Qty: 90 RF: 3 metoprolol tartrate 25 mg tablet 12.5 mg PO BID Qty: 90 RF: 3 simvastatin 40 mg tablet 40 mg PO DAILY Qty: 90 RF: 3 magnesium oxide 400 mg magnesium capsule 400 mg PO DAILY RF: 0 pantoprazole 40 mg tablet,delayed release (DR/EC) 40 mg PO BID RF: 0 aspirin [Adult Aspirin Regimen] 81 mg tablet,delayed release (DR/EC) 81 mg PO DAILY Qty: 90 RF: 3 nitroglycerin 0.4 mg tablet, sublingual 0.4 mg SUBLINGUAL Q5M PRN (Reason: chest pain) Qty: 100 RF: 3 No Action omega-3 fatty acids-fish oil 300-1,000 mg capsule See Rx Instructions .ROUTE .COMPLEX Qty: 90 RF: 3 Discharge Orders: Discharge Order (Routine); Ordered 03/07/21 Ordered By: Shin Pablo Referrals: Rick Ragland MD [Physician] - 04/21/21 3:30 pm (Please call on Monday to schedule an appointment to be seen in one month.) Krzysztof Romero MD [Primary Care Provider] - 03/16/21 (Please call on Monday to schedule an appointment to be seen in one week.) [place],Kavya, MARINE ELECTRICIAN [Nurse Practitioner] - 03/15/21 1:30 pm (Please call on Monday to make an appointment to be seen in one month.) Discharge Diet: Cardiac Discharge Activity: Increase activity as tolerated Patient Instructions: Atorvastatin (By mouth) (Lipitor), Heart Attack (DC), Opioid Safety Activity Restrictions/Additional Instructions: Please do not lift more than 5 pounds of weight for the next 5 days Discharge Attestations Time Spent in Discharge Care*: greater than 30 min Quality Metrics Clinical Quality Measures During this hospital stay, did patient experience: AMI Clinical Trial Participant: No Contraindication to aspirin (AMI): Aspirin given Contraindication to statin: Statin prescribed Coding Level of Care Code Acute Chg FW DC note Diagnoses ST elevation myocardial infarction (STEMI) I21.11 Involved coronary artery: right coronary artery Hypertension I10 Hypertension type: primary hypertension Coronary artery disease I25.10 Associated angina: without angina Coronary Disease-Associated Artery/Lesion type: [place] artery [place] vs. transplanted heart: [place] heart Hx of hyperlipidemia Z86.39 Hx of CABG Z95.1
[2021-03-07] MEDS: clopidogrel 300 mg Tablet 600 MG PO (12:12)
== END 2021-03-07 12:21 | disposition home or self-care (01) | DRG 247 ==
LOC: ER 19:25 → ICU 20:39 → MEDSURG 03-07 05:17
PROVIDERS: Admitting Provider Internal Medicine; Emergency Provider Emergency Medicine; PCP Family Medicine; Visit Provider Internal Medicine
PROC: 027034Z Dilation of Coronary Artery, One Artery with Drug-eluting Intraluminal Device, Percutaneous Approach (ICD-10-PCS; principal; 2021-03-05 18:30)
PROC: 027034Z Dilation of Coronary Artery, One Artery with Drug-eluting Intraluminal Device, Percutaneous Approach (ICD-10-PCS; 2021-03-05 18:30)
DX: I21.19 ST elevation (STEMI) myocardial infarction involving other coronary artery of inferior wall (principal); I25.799 Atherosclerosis of other coronary artery bypass graft(s) with unspecified angina pectoris; I25.118 Atherosclerotic heart disease of native coronary artery with other forms of angina pectoris; I10 Essential (primary) hypertension; I45.10 Unspecified right bundle-branch block; K21.9 Gastro-esophageal reflux disease without esophagitis; I25.2 Old myocardial infarction; E78.5 Hyperlipidemia, unspecified; Z95.1 Presence of aortocoronary bypass graft; Z79.02 Long term (current) use of antithrombotics/antiplatelets; Z87.891 Personal history of nicotine dependence; Z79.82 Long term (current) use of aspirin
CPT/HCPCS: 36415; 71045; 80048; 80053; 82550; 83880; 84484; 85025; 85347; 85610; 85730; 93005; 93306; 93455; 96361; 96374; 96375; 99291; C1725; C1769; C1874; C1887; C1894; C9600; J0461; J1644; J2250; J2405; J3010; J3246; J7030; J7040; Q9967

== ENCOUNTER → 2021-03-15 14:19 | Outpatient (BNVA) | payer MEDICARE, OTHER, SELFPAY | PROVIDERS: PCP Family Medicine; Visit Provider Nurse Practitioner Family | DX: I25.10 Atherosclerotic heart disease of native coronary artery without angina pectoris (principal) | CPT/HCPCS: 80048 ==

== ENCOUNTER → 2021-07-06 09:51 | Outpatient (BNVA) | payer MEDICARE, OTHER, SELFPAY | PROVIDERS: PCP Family Medicine; Visit Provider Nurse Practitioner Family | DX: I25.10 Atherosclerotic heart disease of native coronary artery without angina pectoris (principal); I27.20 Pulmonary hypertension, unspecified; Z87.891 Personal history of nicotine dependence | CPT/HCPCS: 99214 ==

== ENCOUNTER → 2021-07-12 08:45 | Outpatient (BNVA) | payer MEDICARE, OTHER, SELFPAY | PROVIDERS: PCP Family Medicine; Visit Provider Nurse Practitioner Family | DX: I25.10 Atherosclerotic heart disease of native coronary artery without angina pectoris (principal); Z86.39 Personal history of other endocrine, nutritional and metabolic disease | CPT/HCPCS: 80061 ==

== ENCOUNTER 2021-08-12 08:50 | Outpatient (CLI) | payer MEDICARE, OTHER, SELFPAY ==
--- NOTE | 2021-08-12 14:43 | PFTS_ITS ---
Date of Study:08/12/21 Date of Dictation: 08/16/2021 MECHANICS: Prebronchodilator forced vital capacity (FVC) is normal Prebronchodilator forced expiratory volume in one second (FEV1) is normal. FEV1/FVC is normal. There is no postbronchodilator study. FLOW VOLUME LOOP: Normal. LUNG VOLUMES: Not measured DIFFUSING CAPACITY FOR CARBON MONOXIDE: Not measured INTERPRETATION: The prebronchodilator spirometry is normal. There is no postbronchodilator study. Lung volumes and gas transfer not measured. [facility]
== END 2021-08-12 08:51 | disposition home or self-care (01) ==
PROVIDERS: PCP Family Medicine; Visit Provider Nurse Practitioner Family
DX: R06.02 Shortness of breath (principal)
CPT/HCPCS: 94010

== ENCOUNTER → 2021-11-02 14:08 | Outpatient (BNVA) | payer MEDICARE, SELFPAY | PROVIDERS: PCP Family Medicine; Visit Provider Internal Medicine | DX: I25.10 Atherosclerotic heart disease of native coronary artery without angina pectoris (principal); I10 Essential (primary) hypertension; Z95.1 Presence of aortocoronary bypass graft; I25.5 Ischemic cardiomyopathy; I25.2 Old myocardial infarction; Z87.891 Personal history of nicotine dependence | CPT/HCPCS: 99213; 99214 ==

== ENCOUNTER → 2022-05-23 14:09 | Outpatient (BNVA) | payer MEDICARE, SELFPAY | PROVIDERS: PCP Family Medicine; Visit Provider Internal Medicine | DX: I25.10 Atherosclerotic heart disease of native coronary artery without angina pectoris (principal); I10 Essential (primary) hypertension; Z95.1 Presence of aortocoronary bypass graft; I25.5 Ischemic cardiomyopathy; Z87.891 Personal history of nicotine dependence; I25.2 Old myocardial infarction | CPT/HCPCS: 99214 ==

== ENCOUNTER 2022-06-17 06:33 | Outpatient (CLI) | payer MEDICARE, SELFPAY ==
--- NOTE | 2022-06-17 07:00 | USCV_ITS ---
Stacymt Sukhwinder Age: 77 Gender: M : 1945 Exam Date: 06/17/2022 07:04 Ordering Phys: Shin Pablo M.D ([email or web address]) Technologist: Gloria Medina Exam Location: [facility] [place] Indication: bilateral carotid stenosis Risk Factors: None Previous Vascular Surgery: None Right Brachial BP: / Left Brachial BP: / Right Left Velocity (cm/s) Spectral Plaque Velocity (cm/s) Spectral Plaque Syst/Diast Broadening Syst/Diast Broadening 59.00/ 17.10 Prox CCA 58.30 / 24.10 39.60/ 14.80 Mid CCA 31.60 / 10.50 33.40/ 13.20 Distal CCA 42.70 / 18.40 64.50/ 33.40 Prox ICA 41.10 / 17.10 Homo 55.10/ 24.90 Mid ICA 49.70 / 20.30 42.00/ 18.40 Distal ICA 66.80 / 34.20 50.50 Hetro ECA 45.65 1.09 ICA/CCA 1.15 Antegrade Vertebral Antegrade 29.10/ 13.00 cm/s 55.90/ 24.90 cm/s Tri Subclavian Tri 68.70 70.60 FINDINGS Comparison: none available. No significant elevation of systolic or diastolic velocities. Waveforms are normal. Minimal carotid atherosclerosis with no elevation of velocity. Antegrade vertebral arteries. CONCLUSIONS Bilateral ICA stenosis less than 50%. Mild carotid atherosclerosis. Dr. Taylor Harmon DO (Electronically Signed) Final Date: 17 June 2022 08:43 S
== END 2022-06-17 06:34 | disposition home or self-care (01) ==
LOC: RAD 06:35
PROVIDERS: PCP Family Medicine; Visit Provider Internal Medicine
DX: I65.23 Occlusion and stenosis of bilateral carotid arteries (principal)
CPT/HCPCS: 93880

== ENCOUNTER 2022-09-01 06:00 | Outpatient (RCR) | payer MEDICARE, SELFPAY | END 2022-09-30 23:59 | disposition home or self-care (01) | LOC: TPT 06:00 | PROVIDERS: Visit Provider Nurse Practitioner | DX: M54.42 Lumbago with sciatica, left side (principal) | CPT/HCPCS: 97110; 97162 ==

== ENCOUNTER 2022-10-01 06:00 | Outpatient (RCR) | payer MEDICARE, SELFPAY | END 2022-10-31 23:59 | disposition home or self-care (01) | LOC: TPT 06:00 | PROVIDERS: Visit Provider Nurse Practitioner | DX: M54.42 Lumbago with sciatica, left side (principal) | CPT/HCPCS: 97110 ==

== ENCOUNTER 2022-11-29 14:33 | Outpatient (CLI) | payer MEDICARE, SELFPAY ==
--- NOTE | 2022-11-29 14:51 | MR_ITS ---
WS: [id number] MRI LUMBAR SPINE NONCONTRAST TECHNIQUE: Sagittal T1, T2 and STIR imaging. Axial T1 and T2 imaging. CLINICAL INFORMATION: RADICULAR PAIN COMPARISON: None. FINDINGS: Lobulated aneurysmal infrarenal abdominal aorta measuring up to 6.1 x 6.4 cm AP by transverse. Associ ated mural thrombus recommend further evaluation with CTA. 11 mm LEFT renal cyst. L1-L2: Slight retrolisthesis. Mild disc bulge and osteophytic ridging. Mild facet arthropathy. Mild L EFT foraminal narrowing with a LEFT foraminal protrusion. L2-L3: Slight retrolisthesis. Mild disc bulging with narrowing of the RIGHT subarticular recess. Impi ngement on the traversing RIGHT L3 nerve root in the subarticular recess. Moderate facet arthropathy. RIGHT foraminal protrusion impinges the exiting RIGHT L2 nerve root laterally. Mild LEFT foraminal n arrowing. Mild facet arthropathy. L3-L4: Mild disc bulge with impingement the RIGHT subarticular recess and traversing RIGHT L4 nerve r oot. Moderate RIGHT foraminal narrowing impinges the exiting RIGHT L3 nerve root. Mild LEFT foraminal narrowing. L4-L5: Mild disc bulge with narrowing of the subarticular recess bilaterally. Impingement traversing L5 nerve roots. Moderate facet arthropathy. Mild to moderate bilateral foraminal narrowing. L5-S1: Extruded disc material posterior to the L5 vertebral body measuring 9.7 x 15.3 mm AP by cranio caudal. This impinges the LEFT greater than RIGHT traversing S1 nerve roots. Disc material extends in to the RIGHT subarticular recess inferior to the L5-S1 interspace.. Mild facet arthropathy. Moderate LEFT foraminal narrowing. Impingement on the exiting LEFT L5 nerve root. Visualized pelvic bony structures: Normal. Paravertebral soft tissues: Normal. IMPRESSION: 1. Large lobulated tortuous infrarenal abdominal aortic aneurysm measuring 6.1 x 6.4 cm. Recommend f urther evaluation with CTA. 2. Large extruded disc fragment posterior to the L5 vertebral body slightly eccentric to the LEFT. T his impinges the traversing S1 nerve roots with mild central canal stenosis. Moderate LEFT foraminal narrowing at this level. Small amount of additional disc material extends into the RIGHT S1 subarticu lar recess and inferior to the L5-S1 interspace. 3. Disc material measures blank. 4. Mild disc bulging L2-3 and L3-4 with impingement on the RIGHT subarticular recess at these levels . In addition RIGHT foraminal protrusions at these levels results IN mild to moderate RIGHT foraminal narrowing with contact of the exiting RIGHT L2 and L3 nerve roots respectively. 5. Mild to moderate bilateral L4-5 foraminal narrowing.
== END 2022-11-29 14:34 | disposition home or self-care (01) ==
PROVIDERS: PCP Family Medicine; Visit Provider Family Medicine
DX: M51.17 Intervertebral disc disorders with radiculopathy, lumbosacral region (principal); I71.43 Infrarenal abdominal aortic aneurysm, without rupture; M48.07 Spinal stenosis, lumbosacral region
CPT/HCPCS: 72148

== ENCOUNTER 2023-03-29 11:32 | Outpatient (CLI) | payer MEDICARE, SELFPAY ==
--- NOTE | 2023-03-29 11:38 | CTR_ITS ---
PROCEDURE INFORMATION: Exam: CTA Chest With Contrast CTA Abdomen and Pelvis With Contrast Exam date and time: 03/29/2023 12:19 PM Age: 77 years old Clinical indication: Condition or disease; Non-vascular catheter/shunt placement or management; Rupture of artery, non-injury; Due to erosion of artery; Prior surgery; Surgery date: 6+ months; Patient HX: F/u post aortic graft placement; Additional info: Abdominal aortic aneurysm w/o rupture TECHNIQUE: Imaging protocol: Computed tomographic angiography of the chest with contrast. Exam focused on the arteries. Computed tomographic angiography of the abdomen and pelvis with contrast. Exam focused on the arteries. 3D rendering (Not supervised by radiologist): MIP and/or 3D reconstructed images were created by the technologist. Radiation optimization: All CT scans at this facility use at least one of these dose optimization techniques: automated exposure control; mA and/or kV adjustment per patient size (includes targeted exams where dose is matched to clinical indication); or iterative reconstruction. Contrast material: OMNI 350; Contrast volume: 100 ml; Contrast route: INTRAVENOUS (IV); REPORTING DATA: Count of CT and Cardiac NM exams in prior 12 months: This patient has received 0 known CTs and 0 known cardiac nuclear medicine studies in the 12 months prior to the current study. COMPARISON: MR lumbar spine wo con* [id number] 11/29/2022 3:25 PM RADIATION DOSE METRICS: Total DLP (mGy-cm): 1819.32 FINDINGS: VASCULATURE: Pulmonary arteries: Normal. No pulmonary emboli. Aorta: Aorto bi-iliac endovascular stent within a 6.8 x 6.8 cm [place] aneurysm. There is a small endoleak adjacent to the common iliac graft limb. This is probably a type 2 endoleak related to a lumbar artery but that is not definite. Celiac trunk and mesenteric arteries: No occlusion or significant stenosis. Renal arteries: No occlusion or significant stenosis. Right iliac arteries: No occlusion or significant stenosis. Left iliac arteries: No occlusion or significant stenosis. CHEST: Lungs: Unremarkable. No consolidation. No masses. Pleural spaces: Unremarkable. No pneumothorax. No pleural effusion. Heart: Unremarkable. No cardiomegaly. No pericardial effusion. Coronary arteries: Moderate coronary artery calcifications. Diaphragm: Large hiatal hernia. ABDOMEN AND PELVIS: Liver: No mass. Gallbladder and bile ducts: Unremarkable. No calcified stones. No ductal dilation. Pancreas: Unremarkable. No mass. No ductal dilation. Spleen: Unremarkable. No splenomegaly. Adrenal glands: Unremarkable. No mass. Kidneys and ureters: Bilateral renal cysts, largest on the right. Stomach and bowel: Diverticulosis without evidence of diverticulitis. Appendix: No evidence of appendicitis. Intraperitoneal space: Unremarkable. No free air. No significant fluid collection. Urinary bladder: Unremarkable. No mass. Reproductive: Unremarkable as visualized. Lymph nodes: Unremarkable. No enlarged lymph nodes. Bones/joints: Unremarkable. No acute fracture. Soft tissues: Unremarkable. CT/CT angio abdomen pelvis [id number] IMPRESSION: Small endoleak probably type 2. COMMENTS: Consistent with the [place] [employer]'s Incidental Findings Committee white paper (J Am Stefano Radiol 2018): Any incidental renal lesion less than 1 cm or classified as too small to characterize, or any incidental cystic renal lesion characterized as simple-appearing, is likely benign. No follow-up imaging is recommended for these lesions per consensus recommendations based on imaging criteria.
[2023-03-29 12:20] LABS: Blood Urea Nitrogen 14 mg/dL (8-23)
[2023-03-29] MEDS: iohexol 350 mg/mL 500 mL Btl (per mL) IV (12:25)
== END 2023-03-29 11:33 | disposition home or self-care (01) ==
LOC: RAD 11:32
PROVIDERS: PCP Family Medicine; Visit Provider Family Medicine
DX: I71.40 Abdominal aortic aneurysm, without rupture, unspecified (principal); I97.89 Other postprocedural complications and disorders of the circulatory system, not elsewhere classified; Y83.2 Surgical operation with anastomosis, bypass or graft as the cause of abnormal reaction of the patient, or of later complication, without mention of misadventure at the time of the procedure; Y82.8 Other medical devices associated with adverse incidents; Z95.828 Presence of other vascular implants and grafts
CPT/HCPCS: 74174; 82565; 84520; Q9967

== ENCOUNTER → 2023-04-12 14:00 | Outpatient (BNVA) | payer MEDICARE, SELFPAY | PROVIDERS: PCP Family Medicine; Visit Provider Internal Medicine | DX: I25.10 Atherosclerotic heart disease of native coronary artery without angina pectoris (principal); I10 Essential (primary) hypertension; Z95.1 Presence of aortocoronary bypass graft; I25.5 Ischemic cardiomyopathy; Z87.891 Personal history of nicotine dependence | CPT/HCPCS: 99214 ==

== ENCOUNTER 2023-05-08 08:10 | Outpatient (CLI) | payer MEDICARE, SELFPAY ==
--- NOTE | 2023-05-08 08:45 | USCV_ITS ---
Sukhwinder Berg Age: 78 Gender: M : 1945 Exam Date: 05/08/2023 09:02 Ordering Phys: Shin Pablo M.D ([email or web address]) Technologist: [place] [facility] [place]: sob,cp BP: 112 / 70 HR: 50 Rhythm: Sinus Technical Quality: Adequate MEASUREMENTS (Male / Female) Normal Values 2D ECHO LVOT Diameter 2.2 cm LV Ejection Fraction MOD 2C 53.3 % LV Ejection Fraction 2C AL 54.9 % LA Diameter 3.9 cm Aorta at Sinotubular Diameter 3.4 cm IVC Diameter 1.8 cm M-MODE Aortic Annulus Diameter 3.3 cm LA Ao Ratio MM 1.4 MV E Point Septal Separation 0.6 cm DOPPLER AV Peak Velocity 104.0 cm/s LVOT Peak Velocity 86.0 cm/s AV Area Cont Eq vti 3.5 cm squared AV Area Cont Eq pk 3.2 cm squared MV E' Velocity 11.0 cm/s TR Peak Velocity 179.0 cm/s TR Peak Gradient 12.8 mmHg TV Peak E Velocity 54.0 cm/s Right Atrial Pressure 3.0 mmHg Pulmonary Artery Systolic Pressu 15.8 mmHg PV Peak Velocity 87.0 cm/s FINDINGS Left Ventricle Left ventricle is normal in size. LV systolic function is normal with EF of 50 to 55%. No regional wall motion abnormalities are seen. Right Ventricle Normal in size and function Right Atrium Normal in size Left Atrium Normal in size Mitral Valve Structurally normal mitral valve. Aortic Valve Aortic valve is thickened. No significant stenosis or regurgitation. Tricuspid Valve Mild tricuspid regurgitation. Pulmonic Valve Mild pulmonic regurgitation. Pericardium Normal Aorta Mildly dilated ascending aorta with diameter of 3.7 cm. IVC Appears to be normal CONCLUSIONS LV systolic function is normal with EF of 50 to 55%. Mild tricuspid regurgitation Mild pulmonic regurgitation Mildly dilated ascending aorta with diameter of 3.7 cm. Compared to prior echocardiogram from 2020, no significant changes are seen. Shin Pablo MD (Electronically Signed) Final Date: 14 May 2023 20:55 S
== END 2023-05-08 08:11 | disposition home or self-care (01) ==
LOC: RAD 08:10
PROVIDERS: PCP Family Medicine; Visit Provider Internal Medicine
DX: R07.9 Chest pain, unspecified (principal); I08.8 Other rheumatic multiple valve diseases; I77.810 Thoracic aortic ectasia
CPT/HCPCS: 93306

== ENCOUNTER 2023-05-22 13:45 | Outpatient (CLI) | payer MEDICARE, SELFPAY ==
--- NOTE | 2023-05-22 13:53 | CT_ITS ---
WS: [id number] CTA ABDOMEN AND PELVIS TECHNIQUE: Noncontrast plus contrast enhanced CTA of the abdominal aorta with coronal and sagittal re formatted images and additional MIP Images. CLINICAL INFORMATION: AAA POST REPAIR COMPARISON: 03/29/2023 DLP: 1719.[address] scans at [facility] use at least one of these dose optimization techniques: automated e xposure control; mA and/or kV adjustment per patient size (includes targeted exams where dose is matc hed to clinical indication); or iterative reconstruction. 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 Fusiform excluded aneurysm sac m easures 6.6 x 6.5 x 8.0 cm AP by transverse by craniocaudal. 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 No other significant interval changes. Lung bases are well aerated. Moderate to large esophageal hiatal hernia. Adrenal glands are normal. C alcification RIGHT adrenal gland. No hydronephrosis in either kidney. Large RIGHT renal cyst measurin g 8.3 x 7.7 cm. Prominent prostate measuring 4.5 cm. Recommend correlation PSA. Sigmoid diverticulosis. Splenic arter y calcification. Celiac and SMA are patent. Proximal renal arteries are patent. IMPRESSION: 1. 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 2. 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 3. Excluded aneurysm sac measures a few millimeters larger today but not significantly changed.
[2023-05-22 15:03] LABS: Blood Urea Nitrogen 13 mg/dL (8-23)
[2023-05-22] MEDS: iohexol 350 mg/mL 500 mL Btl (per mL) IV (15:17)
== END 2023-05-22 13:46 | disposition home or self-care (01) ==
LOC: RAD 13:48
PROVIDERS: Radiology Neuroradiology; PCP Family Medicine; Visit Provider Surgery
DX: Z95.828 Presence of other vascular implants and grafts (principal)
CPT/HCPCS: 74174; 82565; 84520; Q9967

== ENCOUNTER → 2024-01-10 13:19 | Outpatient (BNVA) | payer MEDICARE, SELFPAY | PROVIDERS: PCP Family Medicine; Visit Provider Internal Medicine | DX: I25.10 Atherosclerotic heart disease of native coronary artery without angina pectoris (principal); I10 Essential (primary) hypertension; Z95.1 Presence of aortocoronary bypass graft; I25.5 Ischemic cardiomyopathy; Z87.891 Personal history of nicotine dependence; I25.2 Old myocardial infarction | CPT/HCPCS: 99213 ==

== ENCOUNTER → 2024-05-03 09:47 | Outpatient (BNVA) | payer MEDICARE, SELFPAY | PROVIDERS: PCP Family Medicine; Visit Provider Internal Medicine | DX: I25.10 Atherosclerotic heart disease of native coronary artery without angina pectoris (principal); I10 Essential (primary) hypertension; Z95.1 Presence of aortocoronary bypass graft; I25.5 Ischemic cardiomyopathy; R06.02 Shortness of breath | CPT/HCPCS: 99214 ==

== ENCOUNTER 2024-05-28 06:58 | Outpatient (CLI) | payer MEDICARE, SELFPAY ==
[2024-05-28 07:15] VITALS: BMI 29.5
--- NOTE | 2024-05-28 07:16 | NMCV_ITS ---
NM inga perf SPECT r/s* [id number] Sukhwinder Berg Age: 79 Gender: M : 1945 Exam Date: 05/28/2024 07:16 Ordering Phys: Shin Pablo M.D ([email or web address]) Technologist: JAYA Castillo Exam Location: [facility] Indications: cp STRESS TEST [facility] IMAGE PROTOCOL Rest/Stress 1 Lexiscan Day Radiopharmaceutical Dose (mCi) Administration Site Administered by Rest: Tc-99m 11 IV JAYA Castillo Sestamibi Stress:Tc-99m 32.9 IV ANDREW CastilloMT Sestamibi Rest: 28-May-2024 60 Discovery 630 Stress: 28-May-2024 30 Discovery 630 0.4mg Lexiscan. Images obtained in supine and prone position. SPECT RESULTS Technical Quality: Good Raw Data Analysis: Normal Image Corrections: No attenuation or motion correction applied Summed Stress Score: 17 Summed Rest Score: 15 Summed Difference Score: 2 PERFUSION FINDINGS Large areas of partially reversible perfusion defects seen in the apical, inferior, inferiolateral and anterior gibson. This is consistent with large areas of prior infarct with small to medium sized areas of periinfarct ischemia in distribution of all 3 coronary arteries. FUNCTIONAL RESULTS (calculated via Gated SPECT) Stress Image LV EF (%): 69 Stress EDV (mL):109 TID: 1.07 Stress ESV (mL):34 FUNCTIONAL FINDINGS: There is normal left ventricular systolic function. IMPRESSIONS 1. Large areas of prior infarcts with small to medium sized areas of krista- infarct ischemia in distribution of all 3 coronary arteries 2. LV systolic function is normal Shin Pablo MD (Electronically Signed) Final Date: 03 June 2024 21:29 S
--- NOTE | 2024-05-28 07:16 | ECG_ITS ---
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 Interpretive Statements LEXISCAN: Procedure: At the baseline, the blood pressure was 150/88mmHg with a heart rate of 59 bpm. The electrocardiogram showed normal sinus rhythm, right bundle branch block with normal ST and T's. The Lexiscan was infused over a period of 20 seconds. A total of 0.4 mg of Lexiscan was infused. The stress phase was continued for a total of 5 minutes. Heart rate was at the end of stress phase was 67 bpm and a blood pressure of 145/91 mmHg. The EKG at the peak infusion revealed normal sinus rhythm with no significant ST-T wave changes. Sestamibi was injected 20 seconds after the Lexiscan infusion. Blood pressure at the end of recovery phase was 154/91mmHg with a heart rate of 66 bpm. Conclusion: 1. Normal EKG response to Lexiscan infusion 2. No Lexiscan induced chest pain or cardiac arrhythmia. 3. Normal blood pressure and heart rate response. 4. Sestamibi/sestamibi perfusion scan pending; see separate report. Electronically Signed On 06-18-2024 22:25:48 CDT by Shin Pablo M.D. [email or web address]
[2024-05-28] MEDS: regadenoson 0.4 Mg/5 ml Syringe IVP (08:51)
[2024-05-28 08:59] VITALS: BP 144/64; PULSE 76
== END 2024-05-28 06:59 | disposition home or self-care (01) ==
PROVIDERS: PCP Family Medicine; Visit Provider Internal Medicine
DX: R06.02 Shortness of breath (principal); R93.1 Abnormal findings on diagnostic imaging of heart and coronary circulation; I24.89 Other forms of acute ischemic heart disease
CPT/HCPCS: 36415; 78452; 93017; 96374; A9500; J2785

== ENCOUNTER → 2024-10-09 14:15 | Outpatient (BNVA) | payer MEDICARE, SELFPAY | PROVIDERS: PCP Family Medicine; Visit Provider Internal Medicine | DX: I25.118 Atherosclerotic heart disease of native coronary artery with other forms of angina pectoris (principal); I10 Essential (primary) hypertension; I42.9 Cardiomyopathy, unspecified; Z79.02 Long term (current) use of antithrombotics/antiplatelets; Z79.82 Long term (current) use of aspirin; Z95.1 Presence of aortocoronary bypass graft; Z87.891 Personal history of nicotine dependence; I25.2 Old myocardial infarction | CPT/HCPCS: 99214 ==